=== PATIENT | male | born 1945 | race Caucasian/White ===

== ENCOUNTER → 2024-08-10 11:40 | Outpatient (REF) | payer OTHER, SELFPAY | LOC: HWRCS 11:40 | PROVIDERS: ATTENDING PHYSICIAN Nurse Practitioner; FAMILY PHYSICIAN Internal Medicine | DX: I10 Essential (primary) hypertension (principal); R53.83 Other fatigue; R06.09 Other forms of dyspnea; E78.5 Hyperlipidemia, unspecified | CPT/HCPCS: 78452; 93017; A9500 ==

== ENCOUNTER → 2024-08-12 11:23 | Outpatient (REF) | payer OTHER, SELFPAY | LOC: HWRCS 11:23 | PROVIDERS: ATTENDING PHYSICIAN Nurse Practitioner; FAMILY PHYSICIAN Internal Medicine | DX: I10 Essential (primary) hypertension (principal); R53.83 Other fatigue; R06.09 Other forms of dyspnea; E78.5 Hyperlipidemia, unspecified | CPT/HCPCS: 93306 ==